=== PATIENT | male | born 1995 | race Native Hawaiian/Other Pacific Islander ===

== ENCOUNTER 2018-05-22 02:57 | Emergency (ER) | payer SELFPAY ==
[~2018-05-22] VITALS: Ht 180.3 cm; Wt 127.3 kg
[2018-05-22] MEDS ORDERED: IBUPROFEN 800 MG TABLET PO ONE (04:00)
[2018-05-22] MEDS ORDERED: PENICILLIN V POTASSIUM 500 MG TABLET PO ONE (04:00)
[2018-05-22] MEDS ORDERED: HYDROCODONE/ACETAMINOPHEN 5-325 MG TABLET PO ONE (04:00)
[2018-05-22 04:05] VITALS: BP 124/88
== END 2018-05-22 05:42 | disposition home or self-care (01) ==
LOC: EMS 02:58
DX: K02.9 Dental caries, unspecified (principal)
CPT/HCPCS: 99284